=== PATIENT | male | born 1965 | race Caucasian/White ===

== ENCOUNTER 2019-08-14 11:57 | Emergency (ER) | payer SELFPAY ==
[~2019-08-14 11:57] MED LIST: EPINEPHrine SYRINGE 1 MG/10 ML SYRINGE ONE; SODIUM BICARB ADULT 8.4% 50 MEQ/50 ML DISP.SYRIN. ONE
--- NOTE | 2019-08-14 12:25 | PHYS DOC ---
Adult General Chief Complaint Chief Complaint: CPR/FULL ARREST HPI HPI Patient is a 53 year old male without past medical history who presents EMS with cardiorespiratory arrest. Patient stated that he didn't feel good this morning and looked pale. Patient went to a dealership and and picked up the car. They found him unresponsive in his car after 45 minutes in the car dealership parking lot and called 911. CPR was assaulted at 1136 by supervisor finish end. Patient did not have a splinter was cardiac activity or respiration and had LMA placement and compression chest with the automated jeremy and had IO with several doses of epinephrine injection without response. Patient did not have cardiac and respiratory activity without CPR at arrival at 1157 CPR continued in ER. Patient had fixed and dilated pupil. Review of Systems Review of Systems Unable to obtain because of code blue Physical Exam Physical Exam Constitutional: Unresponsive CPR in progress HENT: Atraumatic. Eyes: Fixed dilated pupil. Neck: Atraumatic Cardiovascular: CPR in progress, no spontaneous t cardiac activity without CPR Lungs & Thorax: No spontaneous respiration. Abdomen:Atraumatic. Extremities: Atraumatic, no spontaneous pulses without CPR Neurologic: Unresponsive. Psychologic: Unresponsive. Current Patient Data Lab Values Laboratory Tests Test 08/14/19 12:04 Glucose (Fingerstick) 93 mg/dL (70-99) EKG EKG [] Radiology/Procedures Radiology/Procedures [] Course & Med Decision Making Course & Med Decision Making Evaluation of patient in ER showed 53-year-old male patient without history of medical problem brought in with CPR in progress. Patient had fixed dilated pupils and did not have some tenderness cardiac activity or inspiration after 2 Tylenol of 46 minutes of CPR and was pronounced at 1210. Dr. De La Vega data communications analyst case physician was informed at 1337 and he plans to obtain autopsy. Yossi Disclaimer Yossi Disclaimer This electronic medical record was generated, in whole or in part, using a voice recognition dictation system. Departure Departure Impression: Primary Impression: Cardiorespiratory arrest Disposition: 20 (at 1210) Condition: (at 1210) Critical Care Time Critical care time was 30 minutes exclusive of procedures. JOCELYN DUMONT MD Aug 14, 2019 12:25
== END 2019-08-14 12:10 | disposition expired ==
LOC: ER 11:57
DX: I46.9 Cardiac arrest, cause unspecified (principal)
CPT/HCPCS: 82962; 92950; 99291; J0171